=== PATIENT | female | born 1955 | race African-American/Black ===

== ENCOUNTER 2020-02-05 12:47 | Emergency (ER) | payer MEDICARE, MEDICAID ==
[~2020-02-05] VITALS: Ht 162.6 cm; Wt 58.0 kg
[2020-02-05] MEDS ORDERED: ONDANSETRON HCL 4MG/2ML INJ IV STA (14:17)
[2020-02-05] MEDS ORDERED: SODIUM CHLORIDE 0.9% 1,000 ML IV ONE (14:17)
[2020-02-05] MEDS ORDERED: MORPHINE SULFATE 10 MG/ML CPJ IV ONE (14:30)
[2020-02-05] MEDS ORDERED: PROPOFOL 200MG/20ML VIAL IV ONE (15:15)
[2020-02-05] MEDS ORDERED: SODIUM CHLORIDE 0.9% 500 ML IV ONE (15:15)
[2020-02-05] MEDS ORDERED: KETAMINE HCL 50 MG/ML 10ML IV ONE (15:15)
[2020-02-05] MEDS ORDERED: HYDROCODONE/ACETAMINOPHEN 5/325MG TABLET PO ONE (17:15)
[2020-02-05 18:48] VITALS: BP 156/77
== END 2020-02-05 18:54 | disposition home or self-care (01) ==
LOC: ER 12:47
DX: S82.302A Unspecified fracture of lower end of left tibia, initial encounter for closed fracture (principal); S82.402A Unspecified fracture of shaft of left fibula, initial encounter for closed fracture; I10 Essential (primary) hypertension; J44.9 Chronic obstructive pulmonary disease, unspecified; Z88.0 Allergy status to penicillin; W18.30XA Fall on same level, unspecified, initial encounter; Y93.89 Activity, other specified; Y92.89 Other specified places as the place of occurrence of the external cause; Y99.8 Other external cause status
CPT/HCPCS: 27840; 73610; 96374; 96375; 99152; 99285; J2270; J2405; J2704; J3490; J7030; J7040; 29505